=== PATIENT | female | born 1965 | race Caucasian/White ===

== ENCOUNTER 2018-12-05 03:43 | Emergency (ER) | payer MEDICAID ==
[~2018-12-05] VITALS: Ht 160 cm; Wt 66.7 kg
[2018-12-05 03:50] VITALS: BP 129/51
--- NOTE | 2018-12-05 03:58 | NUR ---
PT AMBULATES TO BED 07 WITH STEADY GAIT.
--- NOTE | 2018-12-05 04:06 | NUR ---
53 Y/O FEMALE C/O OF ANXIETY. PT STATES "I CAN'T BREATHE. IT'S BEEN GOING OFF AND ON FOR SIX MONTHS BUT TODAY IS THE WORST". PT STATES SHE FEELS ANXIOUS, "LIKE I'M HAVING A PANIC ATTACK". PT. IS A/OX4 AND FOLLOWS COMMANDS. BREATHING IS UNLABORED AND EVEN. PT. STATES NO PAIN AND STATES "I FEEL LIKE I HAVE TIGHTNESS AROUND MY NECK". DENIES HX OF ASTHMA. ERMD AWARE OF STATUS. SIDERAILSX1. PMH-- DENIES RX-- "I'M SUPPOSED TO TAKE SOMETHING FOR MY HEART BUT I CAN'T REMEMBER THE NAME".
--- NOTE | 2018-12-05 04:11 | NUR ---
ERMD EVALUATING PATIENT AT THIS TIME.
[2018-12-05] MEDS ORDERED: ALBUTEROL SULFATE/IPRATROPIU 3 ML SOL IH STA (04:16)
--- NOTE | 2018-12-05 04:28 | NUR ---
PATIENT REFUSED LAB DRAWS. NOTIFIED
--- NOTE | 2018-12-05 04:28 | NUR ---
RT AT BEDSIDE.
--- NOTE | 2018-12-05 05:07 | NUR ---
ERMD AT BEDSIDE.
[2018-12-05] MEDS ORDERED: predniSONE 20 MG TAB PO ONE (05:15)
[2018-12-05] MEDS ORDERED: AZITHROMYCIN 250 MG TAB PO ONE (05:15)
[2018-12-05] MEDS ORDERED: ALBUTEROL SULFATE/IPRATROPIU 3 ML SOL IH ONE ×2 (05:20)
--- NOTE | 2018-12-05 05:25 | NUR ---
I APPROACHED PATIENT'S BED AND FIRST APOLOGIZED FOR THE "BANGING" THAT IS OCCURRING ON THE WALL D/T CONSTRUCTION IN THE CT DEPT. PATIENT STATES "I USE TO USE IV DRUGS AND IS A HARD STICK SO WHERE EVER THEY CAN GET ONE." I ASKED IF PATIENT SKIN POPS? PATIENT STATED THAT SHE DOES NOT SKIN POP AND STATED "I NEVER SKIN POPPED" PATIENT ALSO EXPRESSED THAT SHE WAS OFFENDED BY MY COMMENT. I ATTEMPTED TO APOLOGIZES TO PATIENT AND STATED "I AM SORRY IF I OFFENDED PATIENT, I WAS NOT TRYING TO BE OFFENSIVE IN ANY MANNER I WAS JUST ASKING IF PATIENT DID SINCE PATIENT STATED EARLIER THAT SHE WAS A HARD STICK D/T USING IV DRUGS. AFTER APOLOGING I STILL ASKED THE PATIENT IF IT WAS OKAY TO ATTEMPT TO DRAW BLOOD FROM PATIENT, BUT PATIENT WAS OFFENDED BY MY COMMENT AND DECLINED BLOOD DRAW. DR LOUISE MADE AWARE. PATIENT ACKNOWLEGED AND APOLOGIZED. Addendum: 12/05/18 at 0537 by RENY I APPROACHED PATIENT'S BED AND FIRST APOLOGIZED FOR THE "BANGING" THAT IS OCCURRING ON THE WALL D/T CONSTRUCTION IN THE CT DEPT. PATIENT WAS INFORMED THAT THE DOCTOR REQUESTED FOR BLOOD DRAW AND BLOOD IS NEEDED TO BE COLLECTED. PATIENT THEN STATED "I USE TO USE IV DRUGS AND IS A HARD STICK SO WHERE EVER THEY CAN GET ONE." I ASKED IF PATIENT SKIN POPS? PATIENT STATED THAT SHE DOES NOT SKIN POP AND STATED "I NEVER SKIN POPPED" PATIENT ALSO EXPRESSED THAT SHE WAS OFFENDED BY MY COMMENT. I ATTEMPTED TO APOLOGIZES TO PATIENT AND STATED "I AM SORRY IF I OFFENDED PATIENT, I WAS NOT TRYING TO BE OFFENSIVE IN ANY MANNER I WAS JUST ASKING IF PATIENT DID SINCE PATIENT STATED EARLIER THAT SHE WAS A HARD STICK D/T USING IV DRUGS. AFTER APOLOGING I STILL ASKED THE PATIENT IF IT WAS OKAY TO ATTEMPT TO DRAW BLOOD FROM PATIENT, BUT PATIENT WAS OFFENDED BY MY COMMENT AND DECLINED BLOOD DRAW. DR LOUISE MADE AWARE. PATIENT ACKNOWLEGED AND APOLOGIZED. PATIENT REQUEST FOR MY NAME AND WAS GIVEN NAME.
--- NOTE | 2018-12-05 05:30 | NUR ---
RT AT BEDSIDE.
[2018-12-05 06:14] VITALS: BP 129/51
--- NOTE | 2018-12-05 06:14 | NUR ---
Patient discharged with v/s stable. Written and verbal after care instructions given and explained. Patient alert, oriented and verbalized understanding of instructions. Ambulatory with steady gait. All questions addressed prior to discharge. ID band removed. Patient advised to follow up with PMD. Rx of azithromycin 250mg 4 tab;prednisone 20mg; albuterol 90mcg given. Patient educated on indication of medication including possible reaction and side effects. Opportunity to ask questions provided and answered.
== END 2018-12-05 06:14 | disposition home or self-care (01) ==
LOC: MED 03:43
DX: R06.02 Shortness of breath (principal); F17.210 Nicotine dependence, cigarettes, uncomplicated; I10 Essential (primary) hypertension
CPT/HCPCS: 71046; 94640; 99284; J7512; J7620

== ENCOUNTER 2021-10-10 22:31 | Emergency (ER) | payer MEDICAID ==
[~2021-10-10] VITALS: Ht 157.5 cm; Wt 58.5 kg
--- NOTE | 2021-10-10 22:32 | NUR ---
per cristian houser pt to lobby.
[2021-10-10 22:33] VITALS: BP 138/100
[2021-10-11] MEDS ORDERED: ALBUTEROL SULFATE/IPRATROPIU 3 ML SOL IH ONE (02:05)
--- NOTE | 2021-10-11 02:11 | NUR ---
RT at chair for breathing treatment.
--- NOTE | 2021-10-11 02:25 | NUR ---
56 Y/O FEMALE biba from [facility], c/c of cough x1 wk. reports yellow and red phelgm. one episode of vomiting after drinking milk per pt. pt is screaming "i want ice, my doctor said i can have ice." A/OX4, AMBULATORY, TACHYPNIC. hx:chf, htn, anemia, dm rx:lasix, carvidolol nka
--- NOTE | 2021-10-11 02:45 | NUR ---
Patient refused blood drawn this time.
--- NOTE | 2021-10-11 03:50 | NUR ---
PATIENT ELOPED FROM FACILITY. DISCHARGE INSTRUCTIONS NOT GIVEN TO PATIENT. DR. Candelario NOTIFIED.
[2021-10-11] MEDS ORDERED: AZIT250T4 PO (04:22)
[2021-10-11] MEDS ORDERED: PRED20TA5 PO (04:22)
[2021-10-11] MEDS ORDERED: ALBU0.0912 IH (04:22)
== END 2021-10-11 03:50 | disposition left against medical advice (07) ==
LOC: MED 22:31
DX: J44.1 Chronic obstructive pulmonary disease with (acute) exacerbation (principal); I10 Essential (primary) hypertension
CPT/HCPCS: 71045; 93005; 94640; 99283